=== PATIENT | female | born 1995 | race Caucasian/White ===

== ENCOUNTER → 2017-04-28 | Outpatient (REF) ==
[~2017-04-28] MED LIST: ALDACTONE 25MG25 M1 PO; BIRTH CONTROL; MACROBID 1100 MG/CAP PO; ULTRAM 50MG TAB50 MG PO
== END ==
LOC: WSOH 11:46
DX: Z02.89 Encounter for other administrative examinations (principal)

== ENCOUNTER → 2018-02-22 | Outpatient (CLI) | payer OTHER | LOC: COL.RAD 14:10 | DX: Z30.431 Encounter for routine checking of intrauterine contraceptive device (principal) ==